=== PATIENT | female | born 1995 | race Asian ===

== ENCOUNTER 2025-02-15 11:38 | Emergency (ER) | payer OTHER ==
[~2025-02-15] VITALS: Ht 165.1 cm; Wt 70.0 kg
[2025-02-15 12:23] LABS: COVID AG,FIA SOURCE NASAL SWAB
[2025-02-15 12:45] LABS: SARS-COV2 (COVID) ANTIGEN,FIA Negative (Negative)
[2025-02-15 12:46] LABS: INFLUENZA TYPE A NEGATIVE FOR TYPE A (NEGATIVE); INFLUENZA TYPE B NEGATIVE FOR TYPE B (NEGATIVE)
[2025-02-15 13:40] LABS: RAPID GROUP A STREP NEGATIVE (NEGATIVE)
[2025-02-15 14:24] LABS: RESPIRATORY SYNCYTIAL VIRS,FIA NEGATIVE (Negative)
[2025-02-15 14:47] VITALS: BP 110/73; PULSE 98; RESP 18; TEMP 97.7; O2SAT 98
== END 2025-02-15 14:47 | disposition home or self-care (01) ==
LOC: EMS 12:09
DX: J06.9 Acute upper respiratory infection, unspecified (principal); Z20.822 Contact with and (suspected) exposure to COVID-19
CPT/HCPCS: 71046; 87420; 87430; 87804; 99284